=== PATIENT | male | born 1985 ===

== ENCOUNTER 2023-11-15 05:57 | Day surgery (SDC) | payer OTHER, SELFPAY ==
[2023-10-26 13:23] VITALS: BMI 22.6
[2023-10-27 12:17] VITALS: BMI 22.1
[2023-11-15 06:53] VITALS: BP 123/73; PULSE 82; RESP 16; TEMP 37; O2SAT 100; BMI 21.7
--- NOTE | 2023-11-15 07:05 | P.HP_ITS ---
History of Present Illness History of Present Illness Consent: Risks, benefits, and alternatives have been discussed and questions answered. Patient agrees to proceed with procedure. Chief complaint: Gerd Narrative: Joe Vaughn is a 38 year old male presents for EGD. Has a long history of acid regurgitation. Patient describes heartburn and substernal discomfort. He also noticed excess phlegm. Initially he tried intermittent [id number]-[id number] omeprazole but symptoms with discontinued this medication. Patient has been prescribed prescription Nexium since July of 2023. Symptoms have improved dramatically. Patient presents today for EGD patient denies any weight loss or bleeding. Family history is noncontributory. Review of Systems Review of Systems: Review of systems noncontributory. [facility] Social History Social History Smoking status: Never smoker Alcohol intake: current Alcohol use details: occassionally Substance use: never Substance use type: does not use Living arrangements: with family Spiritual care concerns: No Meds Home Medications and Allergies Home Medications Medication Instructions Recorded Confirmed Type esomeprazole magnesium 40 mg 40 mg PO BID 10/27/23 11/15/23 History capsule,delayed release Allergies Allergy/AdvReac Type Severity Reaction Status Date / Time No Known Allergies Allergy Verified 11/15/23 06:52 Vital Signs Vital Signs - 24 hr 11/15/23 06:53 Temperature 98.6 F Pulse Rate 82 Respiratory Rate 16 Blood Pressure 123/73 Pulse Oximetry 100 Oxygen Delivery Room Air Exam Narrative: Physical exam reveals patient to be alert signs stable. HEENT exam is unremarkable. Patient is anicteric. Lungs are clear to auscultation and to percussion. Heart is without murmur or extra sounds. Abdomen bowel sounds are present soft nontender with no organomegaly. Digital external rectal exam is normal. Assessment and Plan Assessment and plan (1) GERD (gastroesophageal reflux disease): Code(s): K21.9 - Gastro-esophageal reflux disease without esophagitis Status: Acute Assessment and Plan: Patient with GE reflux disease. Appears to be well controlled on PPI acid supp ression. Anti-reflux measures should continued. EGD will be performed to exclude Adhikari's esophagus or stricture ring. Further recommend SB.
[2023-11-15] MEDS: LACTATED RINGERS 1,000 ML 150 ML IV CONT (07:09)
--- NOTE | 2023-11-15 07:51 | WPDANESEPPF ---
Anes - Initial Pre Proc Eval Procedure: Operation Date: 11/15/23 08:00 Proposed Procedures p Esophagogastroduodenoscopy - Vinh Velázquez MD Date/Time: 11/15/23 07:51 Surgeon: Vinh Velázquez MD Pre Op Diagnosis: Gerd Patient Data Age: 38 Gender: M Height: 1.75 m Weight: 66.7 kg Last Vital Signs Temp 37.0 C 11/15/23 06:53 Pulse 82 11/15/23 06:53 Resp 16 11/15/23 06:53 BP 123/73 11/15/23 06:53 Pulse Ox 100 11/15/23 06:53 O2 Del Method Room Air 11/15/23 06:53 Allergies Allergy/AdvReac Type Severity Reaction Status Date / Time No Known Allergies Allergy Verified 11/15/23 06:52 Home Medications Medication Instructions Recorded Confirmed Type esomeprazole magnesium 40 mg 40 mg PO BID 10/27/23 11/15/23 History capsule,delayed release Patient hx anesthesia problems: none Family hx anesthesia problems: none Results Review: All pre-operative results and documents have been reviewed as part of the pre-operative evaluation. [facility] Social History Social History Smoking status: Never smoker Alcohol intake: current Alcohol use details: occassionally Substance use: never Substance use type: does not use Living arrangements: with family Spiritual care concerns: No Anes - Eval Final PreProcedure Day of Procedure 11/15/23 07:51 Patient weight: normal Heart: regular rate and rhythm Lungs: clear to auscultation Airway: Mallampati scale class 1 Neurological: alert and oriented Last oral intake: >/= 8 hours ASA classification: I Emergent: no Anesthetic plan: proceed Anesthesia type and monitoring: general GIVS and standard monitoring Results Review: All pre-operative results and documents have been reviewed as part of the pre-operative evaluation. Informed Consent: The patient's anesthetic plan and its attendant risks and benefits were discussed with the patient/family/POA. Questions were solicited and answers provided to the satisfaction of the patient/family/POA.
[2023-11-15 08:10] VITALS: BP 105/64; PULSE 81; RESP 16; O2SAT 100
[2023-11-15 08:20] VITALS: BP 107/71; PULSE 80; RESP 16; O2SAT 100
--- NOTE | 2023-11-15 08:25 | WPDANESPN ---
Anes - Prog Note Post-Op Date/Time: 11/15/23 08:25 Cardiovascular status: normal Respiratory status: normal Airway patency: baseline Mental status: baseline Post-Op hydration status: normal Vital Signs: Last Vital Signs Temp 37.0 C 11/15/23 06:53 Pulse 80 11/15/23 08:20 Resp 16 11/15/23 08:20 BP 107/71 11/15/23 08:20 Pulse Ox 100 11/15/23 08:20 O2 Del Method Room Air 11/15/23 08:20 Pain Score (VAS): 0/10 I/O: Intake & Output 11/14/23 11/15/23 11/15/23 23:59 07:59 15:59 Intake Total 500 Balance 500 Patient Feedback: Patient satisfied with anesthetic care.
[2023-11-15 08:30] VITALS: BP 115/76; PULSE 78; RESP 18; O2SAT 100
== END 2023-11-15 08:35 | disposition home or self-care (01) ==
PROVIDERS: PCP Internal Medicine; Visit Provider Internal Medicine Gastroenterology
PROC: 0DJ08ZZ Inspection of Upper Intestinal Tract, Via Natural or Artificial Opening Endoscopic (ICD-10-PCS; CPT 43235; principal; 2023-11-15 08:00)
DX: K21.9 Gastro-esophageal reflux disease without esophagitis (principal)
CPT/HCPCS: 43239